=== PATIENT | male | born 1935 | race American Indian/Alaskan Native ===

== ENCOUNTER → 2017-01-23 | Outpatient (CLI) | payer OTHER, BC | LOC: CIMAGING 11:28 | PROVIDERS: ATTEND Internal Medicine | DX: M54.2 Cervicalgia (principal); M50.30 Other cervical disc degeneration, unspecified cervical region | CPT/HCPCS: 72040-PO ==

== ENCOUNTER → 2017-01-28 | Outpatient (CLI) | payer OTHER, BC ==
[~2017-01-28] MED LIST: IOPAMIDOL (ISOVUE-300) 100 ML BTL ONE
== END ==
LOC: CIMAGING 11:25
PROVIDERS: ATTEND Internal Medicine
DX: G31.9 Degenerative disease of nervous system, unspecified (principal); I67.82 Cerebral ischemia; M54.2 Cervicalgia; Z86.73 Personal history of transient ischemic attack (TIA), and cerebral infarction without residual deficits
CPT/HCPCS: 70470; Q9967

== ENCOUNTER → 2017-05-13 | Outpatient (CLI) | payer OTHER, BC | LOC: CIMAGING 12:27 | PROVIDERS: ATTEND Family Medicine | DX: J90 Pleural effusion, not elsewhere classified (principal); J06.9 Acute upper respiratory infection, unspecified; Z87.891 Personal history of nicotine dependence | CPT/HCPCS: 71020-PO ==

== ENCOUNTER → 2017-06-26 | Outpatient (CLI) | payer OTHER, BC | LOC: CIMAGING 09:47 | PROVIDERS: ATTEND Internal Medicine | DX: I73.9 Peripheral vascular disease, unspecified (principal); J90 Pleural effusion, not elsewhere classified; M48.50XA Collapsed vertebra, not elsewhere classified, site unspecified, initial encounter for fracture; Z95.0 Presence of cardiac pacemaker; Z95.1 Presence of aortocoronary bypass graft; M41.85 Other forms of scoliosis, thoracolumbar region | CPT/HCPCS: 71250-PO ==

== ENCOUNTER → 2018-05-18 | Outpatient (CLI) | payer OTHER, BC | LOC: CIMAGING 15:57 | PROVIDERS: ATTEND Internal Medicine | DX: R63.4 Abnormal weight loss (principal); R05 Cough; J90 Pleural effusion, not elsewhere classified; J98.11 Atelectasis; R91.8 Other nonspecific abnormal finding of lung field | CPT/HCPCS: 36415-PO; 71046-PO; 82607-90 ==

== ENCOUNTER → 2018-05-22 | Outpatient (CLI) | payer OTHER, BC | LOC: CIMAGING 12:59 | PROVIDERS: ATTEND Internal Medicine | DX: J90 Pleural effusion, not elsewhere classified (principal); Z95.1 Presence of aortocoronary bypass graft | CPT/HCPCS: 71260; Q9967 ==

== ENCOUNTER 2018-09-17 10:47 | Inpatient (IN) | payer OTHER, BC ==
--- NOTE | 2018-09-17 14:03 | EDPHY ---
HPI/HX/ROS/PE/MDM Narrative: CHIEF COMPLAINT: Dyspnea, low Hct 27.9 HISTORY OF PRESENT ILLNESS: The patient is an 82 y/o male with a history of CABG and gastric ulcer arriving with his at the recommendation of his PCP, Dr. Beth, for a low Hct and dyspnea. Several days ago he went to [facility] due to a several day history of exertional dyspnea and significant difficulty walking due to this. His Hgb/Hct at that time were 9/29, creatinine 1.9 and he was discharged home. He continued to have symptoms and went to see his PCP, Dr. Beth, yesterday for evaluation. He had labs run that showed a Hct of 27.3 and his doctor is concerned he is bleeding and referred him to the ED. He denies current black stools or emesis, but did have a black bowel movement two weeks ago. He does not use home O2 and says he does not generally have shortness of breath at baseline, but rather describes himself as getting fatigued easily. His disputes this and says he is short of breath frequently. He had upper back pain last week that was treated with Meloxicam, approximately 3 pills last week, but otherwise no regular doses of nonsteroidals. No fever, chills, chest pain, palpitations, vomiting, diarrhea, urinary complaints, headache, lightheadedness, dizziness, syncope, leg swelling. REVIEW OF SYSTEMS: Aside from elements discussed in the HPI, a comprehensive 10-point review of systems was reviewed and is negative. PAST MEDICAL HISTORY: Pacemaker, bypass x2, tricuspid valve regurgitation, mitral clip placement, gastric ulcer history SOCIAL HISTORY: Nonsmoker. at bedside. Occasional wine ( disputes this and says "quite a bit"). PCP: Dr. Beth VITAL SIGNS: Reviewed by me. Vital signs are stable. GENERAL: Well-developed, well-nourished, resting comfortably in no respiratory distress. Somewhat hard of hearing. HEENT: Atraumatic. Eyes: No icterus, no injection. Mouth: moist mucous membranes. No erythema or lesions. Neck: supple with no adenopathy. LUNGS: Clear to auscultation bilaterally, no wheezes, rhonchi or rales. CARDIAC: Regular rate and rhythm, no rubs or gallops. Diastolic murmur. Cyanotic nail beds. ABDOMEN: Soft, nontender, nondistended, bowel sounds normal. RECTAL: Small amount of brown/yellow mucus on the glove. BACK: No CVA tenderness. EXTREMITIES: No trauma. No edema. Range of motion is normal throughout. NEURO: Alert and oriented, grossly nonfocal. SKIN: Warm and dry, no rash. PSYCHIATRIC: Normal mentation, no agitation. Portions of this note were transcribed by a medical director of hospice. I personally performed a history, physical exam, medical decision making, and confirmed accuracy of information the transcribed note. ED Course: This is an 82 y/o male who presents at the recommendation of his PCP due to low Hct and dyspnea with exertion for at least several days. Exam is largely benign. He does have some nail bed cyanosis. Plan for IV, labs, occult stool, EKG. 500mL IV NS ordered. Patient's stool for occult blood test is negative. His hemoglobin and hematocrit are 8 and 26 currently. Bedside troponin is 0.05. Lab troponin 0.054. Creatinine is 1.3. EKG demonstrates a paced rhythm. No discordance noted. Patient's course was discussed with the hospitalist service, Dr. Lu. Patient will be admitted to the PCU. Echocardiogram will be obtained prior to the patient's admission. MDM: Differential diagnosis for the patient's dyspnea on exertion was considered including but not limited to pulmonary infectious processes, anemia, congestive failure, coronary artery disease, right-sided heart failure, pulmonary emboli, pulmonary edema, and cardiac causes. - Data Points Laboratory Results: Laboratory Results 09/17/18 14:20 09/17/18 14:20 09/17/18 09/17/18 09/17/18 14:46 14:34 14:20 WBC RBC Hgb Hct MCV MCH MCHC RDW Plt Count MPV Neut % (Auto) Lymph % (Auto) [place] % (Auto) Eos % (Auto) Baso % (Auto) Nucleat RBC Rel Count Absolute Neuts (auto) Absolute Lymphs (auto) Absolute Monos (auto) Absolute Eos (auto) Absolute Basos (auto) Absolute Nucleated RBC Immature Gran % Immature Gran # PT INR APTT Sodium Potassium Chloride Carbon Dioxide Anion Gap BUN Creatinine Estimated GFR Glucose Calcium Total Bilirubin Conjugated Bilirubin Unconjugated Bilirubin AST ALT Alkaline Phosphatase POC Troponin I 0.05 ng/mL ng/mL (0.00-0.08) Troponin I 0.054 ng/mL H ng/mL (0.000-0.034) Total Protein Albumin Lipase Stool Occult Bld Scrn NEGATIVE (NEGATIVE) 09/17/18 09/17/18 09/17/18 14:20 14:20 14:20 WBC 5.98 10^3/uL 10^3/uL (3.80-9.50) RBC 2.86 10^6/uL L 10^6/uL (4.40-6.38) Hgb 8.4 g/dL L g/dL (13.7-17.5) Hct 26.8 % L % (40.0-51.0) MCV 93.7 fL fL (81.5-99.8) MCH 29.4 pg pg (27.9-34.1) MCHC 31.3 g/dL L g/dL (32.4-36.7) RDW 14.6 % % (11.5-15.2) Plt Count 282 10^3/uL 10^3/uL (150-400) MPV 10.2 fL fL (8.7-11.7) Neut % (Auto) 68.8 % % (39.3-74.2) Lymph % (Auto) 17.4 % % (15.0-45.0) [place] % (Auto) 11.4 % % (4.5-13.0) Eos % (Auto) 1.5 % % (0.6-7.6) Baso % (Auto) 0.7 % % (0.3-1.7) Nucleat RBC Rel Count 0.0 % % (0.0-0.2) Absolute Neuts (auto) 4.12 10^3/uL 10^3/uL (1.70-6.50) Absolute Lymphs (auto) 1.04 10^3/uL 10^3/uL (1.00-3.00) Absolute Monos (auto) 0.68 10^3/uL 10^3/uL (0.30-0.80) Absolute Eos (auto) 0.09 10^3/uL 10^3/uL (0.03-0.40) Absolute Basos (auto) 0.04 10^3/uL 10^3/uL (0.02-0.10) Absolute Nucleated RBC 0.00 10^3/uL 10^3/uL (0-0.01) Immature Gran % 0.2 % % (0.0-1.1) Immature Gran # 0.01 10^3/uL 10^3/uL (0.00-0.10) PT 14.6 SEC SEC (12.0-15.0) INR 1.12 (0.83-1.16) APTT 35.4 SEC SEC (23.0-38.0) Sodium 136 mEq/L mEq/L (135-145) Potassium 4.8 mEq/L mEq/L (3.5-5.2) Chloride 108 mEq/L mEq/L (97-110) Carbon Dioxide 23 mEq/l mEq/l (22-31) Anion Gap 5 mEq/L L mEq/L (6-14) BUN 39 mg/dL H mg/dL (7-23) Creatinine 1.3 mg/dL mg/dL (0.7-1.3) Estimated GFR 53 Glucose 100 mg/dL mg/dL (70-100) Calcium 8.5 mg/dL mg/dL (8.5-10.4) Total Bilirubin 0.4 mg/dL mg/dL (0.1-1.4) Conjugated Bilirubin 0.4 mg/dL mg/dL (0.0-0.5) Unconjugated Bilirubin 0.0 mg/dL mg/dL (0.0-1.1) AST 23 IU/L IU/L (17-59) ALT 25 IU/L IU/L (21-72) Alkaline Phosphatase 102 IU/L IU/L (38-126) POC Troponin I Troponin I Total Protein 6.7 g/dL g/dL (6.3-8.2) Albumin 3.3 g/dL L g/dL (3.5-5.0) Lipase 40 IU/L IU/L (23-300) Stool Occult Bld Scrn Medications Given: Discontinued Medications Sodium Chloride (Ns) 500 mls @ 0 mls/hr IV EDNOW ONE; Wide Open PRN Reason: Protocol Stop: 09/17/18 14:14 Last Admin: 09/17/18 14:34 Dose: 500 mls Sodium Chloride (Ns) 500 mls @ 1,000 mls/hr IV EDNOW ONE PRN Reason: Protocol Stop: 09/17/18 15:14 Last Admin: 09/17/18 15:07 Dose: 500 mls Point of Care Test Results: Chemistry 09/17/18 14:34 POC Troponin I 0.05 ng/mL ng/mL (0.00-0.08) General Time Seen by Provider: 09/17/18 13:40 Initial Vital Signs: Initial Vital Signs Heart Rate 60 09/17/18 11:05 Respiratory Rate 16 09/17/18 11:05 Blood Pressure 105/50 L 09/17/18 11:05 O2 Delivery Mode Room Air Allergies/Adverse Reactions: No Known Allergies Allergy (Verified 09/17/18 15:29) Home Medications: Medication Instructions Recorded Atorvastatin Calcium 10 mg PO DAILY 08/23/15 Clobetasol 0.05% [Temovate Cream] 1 siva TP BID 08/23/15 Herbals/Supplements -Info Only 1 ea PO DAILY 08/23/15 Metoprolol Tartrate 12.5 mg PO BID 08/23/15 Multivitamins [Multivitamin (*)] 1 each PO DAILY 08/23/15 Potassium Chloride 20 meq PO DAILY 08/23/15 Aspirin EC [Aspirin EC 81 mg (*)] 81 mg PO DAILY 09/17/18 Cholecalciferol Vit D3 [Vitamin D3 1,000 units PO DAILY 09/17/18 (*)] Furosemide [Lasix 20 MG (*)] 10 mg PO TUTHSA 09/17/18 Furosemide [Lasix 20 MG (*)] 20 mg PO SUMOWEFR 09/17/18 Lisinopril [Zestril 5 mg (*)] 5 mg PO DAILY 09/17/18 Melatonin [Melatonin 5 mg] 5 mg PO HS 09/17/18 Meloxicam 7.5 mg PO DAILY PRN 09/17/18 Departure - Departure Disposition: [facility] Acute Clinical Impression: Elevated troponin Dyspnea Qualifiers: Dyspnea type: dyspnea on exertion Qualified Code(s): R06.09 - Other forms of dyspnea Anemia Qualifiers: Anemia type: unspecified type Qualified Code(s): D64.9 - Anemia, unspecified Tricuspid regurgitation Qualifiers: Cardiac valve disease etiology: etiology unspecified Qualified Code(s): I07.1 - Rheumatic tricuspid insufficiency Condition: Fair Report Scribed for: Dione Calle Report Scribed by: Cammie Rivas Date of Report: 09/17/18 Time of Report: 14:12
[2018-09-17] MEDS ORDERED: NS 500 ML IV ONE ×2 (14:13→14:45)
[2018-09-17 14:33] LABS: PLATELET COUNT 282 10^3/uL (150-400)
[2018-09-17 14:43] LABS: INR 1.12 (0.83-1.16); PROTIME(PATIENT) 14.6 SEC (12.0-15.0)
[2018-09-17] MEDS ORDERED: ALBUTEROL 3 ML DEYVIAL IH PRN (15:46)
[2018-09-17] MEDS ORDERED: ONDANSETRON 4 MG/2 ML VIAL IVP PRN (15:46)
[2018-09-17] MEDS ORDERED: ONDANSETRON DISINTEGRATING 4 MG TAB PO PRN (15:46)
[2018-09-17] MEDS ORDERED: ACETAMINOPHEN 325 MG TAB PO PRN (15:46)
[2018-09-17] MEDS ORDERED: oxyCODONE IR 5 MG TAB PO PRN (15:46)
[2018-09-17] MEDS ORDERED: PROMETHAZINE HCL 25 MG/ML INJ IVP PRN (15:46)
--- NOTE | 2018-09-17 17:08 | ECHO ---
[email or web address] [address] [address] Main: [phone] Fax: Transthoracic Echocardiogram Name: MARIE KOO MR#: [id number] Study Date: 09/17/2018 Study Time: 03:56 PM Date of : 1935 Age: 82 year(s) Height: 182.9 cm (72 in.) Weight: 60.78 kg (134 lb.) BSA: 1.8 m2 Gender: Male Examination: Echo Indication: Shortness of breath, elevated troponins, hx TR, HX CABG, HX mitral valve clip Image Quality: Adequate Contrast: Requested by: Dione Calle BP: 148 mmHg/75 mmHg Heart Rate: Rhythm: Indication: Shortness of breath, elevated troponins, hx TR, HX CABG, HX mitral valve clip Procedure Staff [place]: Jenna Miller [facility] Reading Physician: Lee Munoz MD Requesting Provider: Conclusions: Normal size left ventricle. Borderline concentric LV hypertrophy. EF is 57 %. Septal dyskinesis most likely due to pacemaker activity. Mild apical hypokinesis due to pacemaker or CAD. Diastolic dysfunction indeterminate due to mitral valve clip. Mildly to moderately dilated right ventricle. Moderately reduced RV function. There is a pacemaker lead noted in the right ventricle. The left atrium is severely dilated. The right atrium is severely dilated. Aortic sclerosis is present. Mild aortic valve regurgitation is present. No aortic valve stenosis is present. Severe tricuspid regurgitation is present. Right ventricular systolic pressure measures 77mmHg. No pericardial effusion. Comparison study from 06/14/2015 was done prior to his MitraClip procedure and demonstrated severe MR. Measurements: Chambers Valvular Assessment AV/MV Valvular Assessment TV/PV Normal Normal Normal Name Value Range Name Value Range Name Value Range Ao Winsome (MM): 3.6 cm (2.2 cm-3.7 AV Vmax: 1.36 m/s (1 m/s-1.7 TR Vmax: 4.09 mm/s ( - ) cm) m/s) TR PGmax: 67 mmHg ( - ) IVSd (2D): 1.0 cm (0.6 cm-1.1 AV maxP mmHg ( - ) syst. PAP: 77 mmHg ( - ) cm) AV meanP mmHg ( - ) PV Vmax: 0.91 m/s (0.6 m/s-0.9 LVDd (2D): 4.5 cm (4.2 cm-5.9 LVOT Vmax: 0.59 m/s (0.7 m/s-1.1 m/s) cm) m/s) PV PGmax: 3 mmHg ( - ) Patient: MARIE KOO Study Date: 09/17/2018 Page 1 of 3 03:56 PM LVDs (2D): 2.9 cm (2.1 cm-4 TIKI (Vmax): 1.5 cm2 ( - ) cm) TIKI (VTI): 1.7 cm ( - ) LVPWd (2D): 0.9 cm (0.6 cm-1 AR (PHT): 982 ms ( - ) cm) MV maxP mmHg ( - ) LVOTd 2.1 cm 2.1 cm mm MV meanP mmHg ( - ) LVEF (BP): 57 % (>=55 %) MV PHT: 0.108 s ( - ) RVDd(2D): 4.6 cm (1.9 cm-3.8 MVA (Vmax): 0.9 m/s ( - ) cmmm) MVA (PHT): 2.0 s ( - ) Continued Measurements: Chambers Valvular Assessment AV/MV Valvular Assessment TV/PV Name Value Name Value Name Value LADs: 3.3 cm MV VTI: 52.90 cm CVP (est.): 10 mmHg LADs Lon.0 cm AR Vmax: 2.39 cm/s LA Area: 31.4 cm2 LA Volume: 127 ml LA Volume Index: 70.6 ml/m2 TAPSE: 0.9 cm RA Area: 25.5 cm2 Additional Vessels Name Value Ao Ascendin.6 cm Findings: Left Ventricle: Normal size left ventricle. Borderline concentric LV hypertrophy. Normal global systolic LV function. EF is 57 %. Septal dyskinesis most likely due to pacemaker activity. Mild apical hypokinesis due to pacemaker or CAD. Diastolic dysfunction indeterminate due to mitral valve clip. Right Ventricle: Mildly to moderately dilated right ventricle. Moderately reduced RV function. There is a pacemaker lead noted in the right ventricle. Left Atrium: The left atrium is severely dilated. Right Atrium: The right atrium is severely dilated. Mitral Valve: The patient has had a MitraClip procedure. The mitral leaflets are thickend consistent with 1-2 mitral clips. Mild mitral regurgitation. Mean pressure across the MV is 7mmHg consistent with mild jatin stenosis. Aortic Valve: The aortic valve is tri-leaflet. Aortic sclerosis is present. Mild aortic valve regurgitation is present. No aortic valve stenosis is present. Tricuspid Valve: The tricuspid valve leaflets do not seem to coapt due to RV dilatation. Severe tricuspid regurgitation is present. Right ventricular systolic pressure measures 77mmHg. The pulmonary artery pressure is severely increased. Pulmonic Valve: The pulmonic valve is normal in appearance. Mild pulmonic valve regurgitation is noted. Aorta: Normal size aortic root measuring 3.6 cm. Normal size ascending aorta measuring 2.6 cm. IVC: The IVC is mildly dilated. There is greater marley 50% respiratory excursion. Pericardium: No pericardial effusion. There is a pleural effusion. Patient: MARIE KOO Study Date: 09/17/2018 Page 2 of 3 03:56 PM (No Signature Object) Patient: MARIE KOO Study Date: 09/17/2018 Page 3 of 3 03:56 PM [id number]
--- NOTE | 2018-09-17 17:30 | PDGENHP ---
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 Patient notes that he has been experiencing these sxs of fatigue and sob primarily with exertion, but at rest as well. He has been seen by his PCP for this as well as at [facility] ER on 09/15 and was noted at both of these evaluations to have normal o2 sats and clear lungs but lower blood cell counts and worsening creatinine from his baseline. He has been set up to be evaluated by GI but has not seen them yet. He has had serial stool studies including one today that have been negative for blood and has had an SPEP sent by his PCP which is still pending. His PCP became concerned when he noted that patients hgb on 09/15 was 9.0 and on 09/16 was 8.5. Today in the ER it is found to be 8.4. Patient notes that several weeks ago he had an episode of dark/tarry stools which resolved and has not returned. He states he has been eating and drinking well, although his notes he does not drink much fluid. He does not believe he has had any recent change in his medications but he does not seem to know what medications he is on either. He denies chest pain, palpitations, pain or swelling in his legs, fever or chills. History Information - Allergies/Home Medication List Allergies/Adverse Reactions: No Known Allergies Allergy (Verified 09/17/18 15:29) Home Medications: Atorvastatin Calcium 10 mg PO HS 08/23/15 [Last Taken Unknown] Herbals/Supplements -Info Only 1 ea PO DAILY 08/23/15 [Last Taken Unknown] Multivitamins [Multivitamin (*)] 1 each PO DAILY 08/23/15 [Last Taken Unknown] Aspirin EC [Aspirin EC 81 mg (*)] 81 mg PO HS 09/17/18 [Last Taken Unknown] Cholecalciferol Vit D3 [Vitamin D3 (*)] 1,000 units PO DAILY 09/17/18 [Last Taken Unknown] Furosemide [Lasix 40 MG (*)] 20 mg PO TUTHSA 09/17/18 [Last Taken Unknown] Furosemide [Lasix 40 MG (*)] 40 mg PO SUMOWEFR 09/17/18 [Last Taken Unknown] Lisinopril [Zestril 5 mg (*)] 5 mg PO HS 09/17/18 [Last Taken Unknown] Melatonin [Melatonin 5 mg] 5 mg PO HS 09/17/18 [Last Taken Unknown] Metoprolol Succinate Xr [Toprol Xl 25 mg (*)] 12.5 mg PO HS 09/17/18 [Last Taken Unknown] I have personally reviewed and updated: family history, medical history, social history, surgical history - Past Medical History atrial fibrillation (flutter), coronary artery disease, CHF (diastolic and prior EF of 40-45%), hypertension, hyperlipidemia Additional medical history: moderate pulm htn. CKD with prior baseline of 1.3. VHD with prior severe MR/severe TR and s/p MV clip. chronic anemia--prior to these visits hgb of 11. chronic left pleural effusion - Surgical History Reports: coronary bypass surgery, pacemaker/AICD - Family History Positive for: non-pertinent - Social History Smoking Status: Former smoker Alcohol Use: Occasionally Drug Use: None Additional social history: , lives with his Review of Systems Review of Systems: ROS: 10pt was reviewed & negative except for what was stated in HPI & below Physical Exam Physical Exam: Temp Pulse Resp BP Pulse Ox 36.9 C 68 18 140/71 H 94 09/17/18 17:28 09/17/18 17:28 09/17/18 17:28 09/17/18 17:28 09/17/18 17:28 Constitutional: no apparent distress, appears nourished Eyes: PERRL, anicteric sclera Ears, Nose, Mouth, Throat: moist mucous membranes, hearing normal Cardiovascular: regular rate and rhythym, systolic murmur, No edema Respiratory: no respiratory distress, no rales or rhonchi, clear to auscultation Gastrointestinal: normoactive bowel sounds, soft, non-tender abdomen Genitourinary: no bladder tenderness Skin: warm, normal color Musculoskeletal: full muscle strength Neurologic: AAOx3 Psychiatric: interacting appropriately, not anxious, not encephalopathic Lab Data & Imaging Review 09/17/18 14:20 09/17/18 14:20 WBC 5.98 10^3/uL (3.80-9.50) 09/17/18 14:20 RBC 2.86 10^6/uL (4.40-6.38) L 09/17/18 14:20 Hgb 8.4 g/dL (13.7-17.5) L 09/17/18 14:20 Hct 26.8 % (40.0-51.0) L 09/17/18 14:20 MCV 93.7 fL (81.5-99.8) 09/17/18 14:20 MCH 29.4 pg (27.9-34.1) 09/17/18 14:20 MCHC 31.3 g/dL (32.4-36.7) L 09/17/18 14:20 RDW 14.6 % (11.5-15.2) 09/17/18 14:20 Plt Count 282 10^3/uL (150-400) 09/17/18 14:20 MPV 10.2 fL (8.7-11.7) 09/17/18 14:20 Neut % (Auto) 68.8 % (39.3-74.2) 09/17/18 14:20 Lymph % (Auto) 17.4 % (15.0-45.0) 09/17/18 14:20 [place] % (Auto) 11.4 % (4.5-13.0) 09/17/18 14:20 Eos % (Auto) 1.5 % (0.6-7.6) 09/17/18 14:20 Baso % (Auto) 0.7 % (0.3-1.7) 09/17/18 14:20 Nucleat RBC Rel Count 0.0 % (0.0-0.2) 09/17/18 14:20 Absolute Neuts (auto) 4.12 10^3/uL (1.70-6.50) 09/17/18 14:20 Absolute Lymphs (auto) 1.04 10^3/uL (1.00-3.00) 09/17/18 14:20 Absolute Monos (auto) 0.68 10^3/uL (0.30-0.80) 09/17/18 14:20 Absolute Eos (auto) 0.09 10^3/uL (0.03-0.40) 09/17/18 14:20 Absolute Basos (auto) 0.04 10^3/uL (0.02-0.10) 09/17/18 14:20 Absolute Nucleated RBC 0.00 10^3/uL (0-0.01) 09/17/18 14:20 Immature Gran % 0.2 % (0.0-1.1) 09/17/18 14:20 Immature Gran # 0.01 10^3/uL (0.00-0.10) 09/17/18 14:20 PT 14.6 SEC (12.0-15.0) 09/17/18 14:20 INR 1.12 (0.83-1.16) 09/17/18 14:20 APTT 35.4 SEC (23.0-38.0) 09/17/18 14:20 Sodium 136 mEq/L (135-145) 09/17/18 14:20 Potassium 4.8 mEq/L (3.5-5.2) 09/17/18 14:20 Chloride 108 mEq/L (97-110) 09/17/18 14:20 Carbon Dioxide 23 mEq/l (22-31) 09/17/18 14:20 Anion Gap 5 mEq/L (6-14) L 09/17/18 14:20 BUN 39 mg/dL (7-23) H 09/17/18 14:20 Creatinine 1.3 mg/dL (0.7-1.3) 09/17/18 14:20 Estimated GFR 53 09/17/18 14:20 Glucose 100 mg/dL (70-100) 09/17/18 14:20 Calcium 8.5 mg/dL (8.5-10.4) 09/17/18 14:20 Total Bilirubin 0.4 mg/dL (0.1-1.4) 09/17/18 14:20 Conjugated Bilirubin 0.4 mg/dL (0.0-0.5) 09/17/18 14:20 Unconjugated Bilirubin 0.0 mg/dL (0.0-1.1) 09/17/18 14:20 AST 23 IU/L (17-59) 09/17/18 14:20 ALT 25 IU/L (21-72) 09/17/18 14:20 Alkaline Phosphatase 102 IU/L (38-126) 09/17/18 14:20 POC Troponin I 0.05 ng/mL (0.00-0.08) 09/17/18 14:34 Troponin I 0.054 ng/mL (0.000-0.034) H 09/17/18 14:20 Total Protein 6.7 g/dL (6.3-8.2) 09/17/18 14:20 Albumin 3.3 g/dL (3.5-5.0) L 09/17/18 14:20 Lipase 40 IU/L (23-300) 09/17/18 14:20 Stool Occult Bld Scrn NEGATIVE (NEGATIVE) 09/17/18 14:46 Visualized and Interpreted Chest x-ray results: Yes Chest X-Ray results: effusion (left loculated pleural effusion, chronic) Visualized and Interpreted imaging results: Yes Interpretation: echo: mild mr/ar and severe TR, EF of 57%, RVSP of 77mmHg Visualized and Interpreted EKG results: Yes EKG additional interpertation: V paced rhythm Assessment & Plan Assessment: Dyspnea (Acute) Elevated troponin (Acute) Anemia (Acute) Tricuspid regurgitation (Acute) 82 yo M with hx of CAD s/p CABG, VHD with severe TR and prior severe MR now s/p MR clip presenting with worsening anemia and sob # acute on chronic anemia: with slow downtrend since last May, negative hemoccult x 3, etiology unclear but nothing to suggest acute or ongoing bleeding. Does describe an episode of dark stools 2 weeks ago and with chronic anemia possible that a resolved GI bleed or slow bleed is underlying etiology, regardless unless e/o active bleeding develops do not feel that an urgent IP endoscopy is necessary. Will get serial h/h. Iron studies performed show likely mixed picture with possible component of iron deficiency in addition to anemia of chronic disease. Bili normal, no abnormal cells to suggest hemolysis. # sob: without clear etiology, o2 sats in high 90s, cxr normal, echo appears overall improved other than worsening pulmonary htn as next. Trop mildly elevated on arrival, will trend, monitor on tele as below # elevated trop: without chest pain but c/o sob and exertional dyspnea/fatigue, echo showing improved ef and no clear e/o wall motion abnormality, will ask cardiology to consult in am # severe pulm htn: this has worsened since his prior echo and along with severe TR possible underlying etiology for his sxs, he does not appear volume overloaded on exam, no hypoxia, cardiology consult pending # CAD: with no c/o chest pain but elevated trop, non ischemic ecg, trending trops/monitor on tele # ckd: at baseline, did have episode of trent on 09/15 on evaluation of ER report from [facility] # VHD: MR prior to MV clip was severe now mild, TR remains severe, as above # chronic left pleural effusion: noted to be loculated, has been present for some time and commented on by prior MDs as well, unlikely to be etiology for his sob # a flutter: now with PPM and V paced rhythm on ecg # observation status Patient new to my care. Old records reviewed and summarized as above. Care plan reviewed with ER doctor as above. Further hx obtained from patients present at bedside.
[2018-09-17] MEDS: LISINOPRIL 5 MG TAB PO SCH (19:42)
[2018-09-17] MEDS: ATORVASTATIN CALCIUM 10 MG TAB PO SCH (19:42)
[2018-09-17] MEDS: METOPROLOL SUCCINATE XR 25 MG TAB PO SCH (19:44)
[2018-09-17] MEDS: MELATONIN 3 MG TAB PO SCH (19:45)
[2018-09-18 05:02] LABS: PLATELET COUNT 219 10^3/uL (150-400)
[2018-09-18] MEDS ORDERED: ATORVASTATIN CALCIUM 10 MG TAB PO SCH (09:00)
[2018-09-18] MEDS: CHOLECALCIFEROL VIT D3 1,000 UNITS TAB PO SCH (10:42)
[2018-09-18] MEDS: MULTIVITAMINS 1 EACH TAB PO SCH (10:42)
--- NOTE | 2018-09-18 13:38 | CPEKG ---
Test Reason : OPEN Blood Pressure : / mmHG Vent. Rate : 060 BPM Atrial Rate : 091 BPM P-R Int : 186 ms QRS Dur : 158 ms QT Int : 506 ms P-R-T Axes : 000 270 095 degrees QTc Int : 506 ms Ventricular-paced rhythm Confirmed by Dione Calle ([id number]) on 09/18/2018 1:37:55 PM Referred By: Dione Calle Confirmed By:Dione Calle
[2018-09-18] MEDS ORDERED: PNEUMOC 13-VAL CONJ-DIP CRM/PF 0.5 ML SYR (PREVNAR 13) IM ONE ×2 (14:00→16:30)
[2018-09-18] MEDS ORDERED: LIDOCAINE 1% 300 MG/30 ML SDV ONE (14:19)
--- NOTE | 2018-09-18 15:06 | GCON ---
[f rep st] CONSULTATION CARDIOLOGY CONSULTATION DATE OF CONSULTATION: 09/18/2018 REQUESTING PHYSICIAN: Dr. Kyle REASON FOR CONSULTATION: Progressive dyspnea on exertion in a patient with extensive prior cardiac h istory. HISTORY: The patient is an 82-year-old male who is familiar to me from past hospitalizations. I per formed two prior cardiac catheterizations on him. He has a history of CAD with prior CABG and subseq uent PCI procedures. He also has a history of valvular heart disease, status post MitraClip procedur e in 2015. He was seen in the emergency room at the [facility] two d ays ago. He was noted to be anemic with a hemoglobin of 9.0. His BNP was somewhat elevated at 1960. However, he was felt to be stable from a cardiac standpoint and volume compensated with respect to CHF. The patient followed up with his PCP the next day, and his hemoglobin was slightly lower at 8.5 . Because of ongoing issues with dyspnea on exertion, he was encouraged to come to the emergency logan at [facility] and be considered for admission for treatment and workup of his anemia. Duri ng the time that the patient was developing progressive dyspnea, he did not experience any symptoms s uggestive of angina and did not demonstrate any signs of increasing fluid retention. PAST CARDIAC HISTORY: He has an extensive cardiac history. In 2013, I performed a cardiac catheteri zation which demonstrated multivessel CAD. He had a 2-vessel CABG performed at the [facility]. His bypass grafts consist of BISHOP to LAD and saphenous vein graft to an obtuse jeff nal branch. Because of a history of atrial fibrillation, he underwent an intraoperative pulmonary ve in isolation and maze procedure. He subsequently has developed chronic atrial flutter. He has decli servando systemic anticoagulation. Once again, I performed a cardiac catheterization in 2015. At that ti me, he demonstrated a significant stenosis in the LAD distal to the insertion of the BISHOP graft. At that time he was also shown to have yzonlgka-cy-yyvrvk mitral regurgitation. An September of 2015, he underwent PCI of the LAD lesion as well as PCI of the RCA. In November of 2015, he underwent a MitraCl ip procedure. Prior to his PCI procedures and MitraClip, he had a cardiomyopathy with an ejection fr action of approximately 45%. He has had a chronic left-sided pleural effusion that dates back to his bypass surgery I believe. He also has severe tricuspid regurgitation. He continues to be followed by the [facility] Cardiology Department. They have discussed potentially performing off- label use of a MitraClip to treat his tricuspid regurgitation. Finally, he has a history of sick sin us syndrome and underwent dual-chamber pacemaker implantation in May of 2014. PAST MEDICAL HISTORY: In addition to his cardiac history, he has had a central retinal vein occlusio n. He has a history of peptic ulcer disease. MEDICATIONS: His relevant cardiac medications consist of aspirin 325 mg daily, atorvastatin 10 mg da wes, furosemide 20 mg daily, lisinopril 5 mg daily, and metoprolol tartrate 12.5 mg twice daily. ALLERGIES: No known drug allergies. FAMILY HISTORY: Noncontributory. SOCIAL HISTORY: He is . He is a nonsmoker and does not consume significant amounts of alcoho l. REVIEW OF SYSTEMS: Notable for progressive dyspnea with exertion and generalized osteoarthritis, marina nt discomfort. Otherwise, a 10-point review was negative. PHYSICAL EXAMINATION: VITAL SIGNS: Heart rate 60 with a ventricular paced rhythm on the monitor. B lood pressure 105/52. GENERAL: This is a thin elderly male in no acute distress. He is currently r eceiving a transfusion of packed red blood cells. HEAD AND NECK: No scleral icterus. Mucous membra good moist. Carotid pulses 2+ without bruits. There is no JVD. CHEST: Decreased breath sounds at t he left base. No wheezes or rales. CARDIAC: Regular rate and rhythm with normal S1 and S2. No mur mur or gallop. ABDOMEN: Soft, nontender, nondistended with normal bowel sounds. EXTREMITIES: 2+ p ulses and no peripheral edema. ECG: His ECG demonstrates underlying atrial flutter with ventricular pacing. Chest x-ray: Chest x-ray shows slightly enlarged cardiac silhouette. There is a loculated left basi lar pleural effusion. There is no evidence for pulmonary vascular congestion or pulmonary edema. LABORATORY STUDIES: His CBC demonstrates a white blood cell count of 4.55 with hemoglobin and hemato crit of 6.8 and 21.9. Platelet count is 219,000. Sodium is 137 with potassium 4.9, BUN 32, and crea tinine 1.1. IMPRESSION: This is an 82-year-old male with a complex cardiac history as outlined above. An echoca rdiogram performed yesterday demonstrated an ejection fraction of 57%. His mitral clip procedure has held up well, and he has only mild mitral regurgitation. He has severe tricuspid regurgitation whic h has been chronic. At this point, I think his cardiac status is largely unchanged compared to recor ds from the [facility], which are available in [place]. I think his progressiv e dyspnea on exertion is likely secondary to his anemia with a possible contribution from his left pl eural effusion. RECOMMENDATIONS: The patient is now admitted and will undergo a workup for the source of his anemia. He should continue his usual cardiac medications. No additional cardiac testing is indicated at th is time. We will sign off. Please call if there are any other questions or issues. /[id number]/MODL
--- NOTE | 2018-09-18 16:05 | HOSPPROG ---
Hospitalist Progress Note Assessment/Plan: #Acute on chronic anemia: 1 dark stool 2 weeks ago, currently normal. Had 3 negative FOBT recently -Will transfuse 1 unit today -needs endoscopy, but can be done outpatient -can dose IV iron #Dyspnea: multifactorial with anemia, chronic effusion, TR. Not requiring oxygen #CAD: h/o 2V-CABG with subsequent PCI to LAD/RCA in 2016. Statin, hold ASA with anemia #Atrial fibrillation: BB, prior MAZE procedure #Chronic left pleural effusion: since CT surgery. Reviewed imaging with Dr. Wiggins. 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 Thoracentesis today #VHD: h/o MR: s/p MitralClip. Mild MR on echo.Severe TR #SSS: pacemaker #Severe pulm HTN: caution with volume status #Diet: cardiac #DVT ppx: Lovenox Inpatient admission for transfusion, cards eval, thoracentesis Subjective: still SOB, no chest pain Objective: Vital Signs Temp Pulse Resp BP Pulse Ox 36.7 C 64 20 121/76 H 95 09/18/18 14:55 09/18/18 14:55 09/18/18 14:55 09/18/18 14:55 09/18/18 14:55 Laboratory Results 09/18/18 14:30 09/18/18 04:06 09/17/18 09/18/18 09/19/18 05:59 05:59 05:59 Intake Total 1300 325 Balance 1300 325 PT 14.6 SEC (12.0-15.0) 09/17/18 14:20 INR 1.12 (0.83-1.16) 09/17/18 14:20 - Time Spent With Patient Time Spent with Patient: greater than 35 minutes Time Spent with Patient: Greater than 35 minutes spent on this patients care, greater than 50% of time spent counseling, educating, and coordinating care regarding the above mentioned plan. - Physical Exam Constitutional: no apparent distress Eyes: PERRL Ears, Nose, Mouth, Throat: moist mucous membranes Cardiovascular: regular rate and rhythym, No edema Respiratory: other (decreased BS from mid-lung to base) Gastrointestinal: normoactive bowel sounds Genitourinary: no bladder fullness Skin: warm Musculoskeletal: full muscle strength Neurologic: AAOx3, CN II-XII Intact Psychiatric: interacting appropriately ICD10 Worksheet Patient Problems: Problems Problem Status Onset Dyspnea Acute Elevated troponin Acute Anemia Acute Tricuspid regurgitation Acute
--- NOTE | 2018-09-18 16:46 | ASMTCMCOM ---
CM Note CM Note Notes: 09/18/2018 Case Management Note Discussed pt during rounds this morning. Pt admitted for SOB and anemia. Blood transfusion planned. Met w/ and pt to discuss d/c needs. Erika can be reaced at [phone]. [facility]. Pt agreed referral would be a good idea. Faxed to [facility] health. Anticipating need for home health RN at discharge. Case Management d/c poc: to be determined. Case Management to follow. Date Signed: 09/18/2018 04:46 PM Electronically Signed By:Holly Dash RN
[2018-09-18] MEDS: HYDROCODONE/APAP 5/325 TAB PO PRN ×2 (16:48→20:51)
[2018-09-18] MEDS: ATORVASTATIN CALCIUM 10 MG TAB PO SCH (20:46)
[2018-09-18] MEDS: MELATONIN 3 MG TAB PO SCH (20:46)
[2018-09-18] MEDS: METOPROLOL SUCCINATE XR 25 MG TAB PO SCH (20:47)
[2018-09-18] MEDS: LISINOPRIL 5 MG TAB PO SCH (20:48)
--- NOTE | 2018-09-18 23:18 | PDMN ---
Medical Necessity Medical necessity: Pt meets IP criteria as of 09/18/2018 per and MCG M-35 ( Anemia); los > 2 mn for ongoing tx and management of anemia with dyspnea that has continued despite observation care in the setting of CAD, Afib, VHD, severe pulmonary HTN, and chronic pleural effusion.
[2018-09-19] MEDS: HYDROCODONE/APAP 5/325 TAB PO PRN ×3 (06:11→19:47)
[2018-09-19] MEDS ORDERED: FUROSEMIDE 20 MG TAB PO SCH (08:00)
[2018-09-19] MEDS: MULTIVITAMINS 1 EACH TAB PO SCH (09:23)
[2018-09-19] MEDS: CHOLECALCIFEROL VIT D3 1,000 UNITS TAB PO SCH (09:23)
[2018-09-19] MEDS: SODIUM FERRIC GLUCONAT/SUCROSE 125 MG in NS 100 ML IV SCH (12:53)
--- NOTE | 2018-09-19 14:54 | HOSPPROG ---
Hospitalist Progress Note Assessment/Plan: #Acute on chronic anemia: 1 dark stool 2 weeks ago, currently normal. Had 3 negative FOBT recently -s/p 1 unit RBC. IV iron while here -needs endoscopy, but can be done outpatient #Dyspnea: multifactorial with anemia, chronic effusion #Soft BP: hold ACEI and Lasix #CAD: h/o 2V-CABG with subsequent PCI to LAD/RCA in 2016. Statin, hold ASA with anemia #Atrial fibrillation: BB, prior MAZE procedure #Chronic left pleural effusion: since CT surgery. Reviewed imaging with Dr. Wiggins. Suspect paralyzed diaphragm -gram stain negative. Cytology pending #VHD: h/o MR: s/p MitralClip. Mild MR on echo.Severe TR #acute hypoxic resp failure: 80%RA with exertion. Due to anemia, pleural effusion. -oxygen at DC #SSS: pacemaker #Severe pulm HTN: caution with volume status #Diet: cardiac #DVT ppx: Lovenox Inpatient admission for transfusion, cards eval, thoracentesis Subjective: SOB with walking Objective: Vital Signs Temp Pulse Resp BP Pulse Ox 36.4 C 60 18 112/52 L 94 09/19/18 11:01 09/19/18 11:01 09/19/18 11:01 09/19/18 11:01 09/19/18 11:01 Microbiology 09/18/18 16:10 Gram Stain - Final Pleural Fluid - Aspirate Laboratory Results 09/19/18 07:30 09/19/18 07:30 09/18/18 09/19/18 09/20/18 05:59 05:59 05:59 Intake Total 676 Balance 676 PT 14.6 SEC (12.0-15.0) 09/17/18 14:20 INR 1.12 (0.83-1.16) 09/17/18 14:20 - Time Spent With Patient Time Spent with Patient: greater than 35 minutes Time Spent with Patient: Greater than 35 minutes spent on this patients care, greater than 50% of time spent counseling, educating, and coordinating care regarding the above mentioned plan. - Physical Exam Constitutional: no apparent distress Eyes: PERRL Ears, Nose, Mouth, Throat: moist mucous membranes Cardiovascular: regular rate and rhythym, No edema Respiratory: other (decreased BS mid left-lung to base) Gastrointestinal: normoactive bowel sounds Genitourinary: no bladder fullness Musculoskeletal: full muscle strength Neurologic: AAOx3, CN II-XII Intact Psychiatric: interacting appropriately ICD10 Worksheet Patient Problems: Problems Problem Status Onset Anemia Acute Dyspnea Acute Elevated troponin Acute Tricuspid regurgitation Acute
[2018-09-19] MEDS: ATORVASTATIN CALCIUM 10 MG TAB PO SCH (19:48)
[2018-09-19] MEDS: MELATONIN 3 MG TAB PO SCH (19:48)
[2018-09-19] MEDS: METOPROLOL SUCCINATE XR 25 MG TAB PO SCH (19:56)
[2018-09-20] MEDS ORDERED: NS 1,000 ML IV SCH (07:30)
[2018-09-20] MEDS: SODIUM FERRIC GLUCONAT/SUCROSE 125 MG in NS 100 ML IV SCH (08:36)
[2018-09-20] MEDS: MULTIVITAMINS 1 EACH TAB PO SCH (08:37)
[2018-09-20] MEDS: CHOLECALCIFEROL VIT D3 1,000 UNITS TAB PO SCH (08:37)
[2018-09-20] MEDS: HYDROCODONE/APAP 5/325 TAB PO PRN (08:37)
--- NOTE | 2018-09-20 08:52 | PDHOMEO2F ---
Home Oxygen Face to Face Home Orders: I certify that a physician or a nurse practitioner or physician's logging assistant has had a bzyo-lh-syzz encounter with this patient on the date of this order due to the diagnosis listed, which relates to the primary reason the patient requires home oxygen. Alternative treatments have been tried, or considered, and deemed ineffective. It is anticipated that supplemental oxygen will result in improvement with treatment. Home oxygen qualifying diagnosis: Chronic left pleural effusion Home oxygen secondary diagnosis: systolic/diastolic HF SpO2 on room air (%): 80 Frequency of home oxygen needed: continuous Home oxygen liters per minute: 2 Home oxygen delivery device: nasal cannula Concentrator: Yes E-tanks for mobility and back up: Yes If ordering portable O2, is the patient mobile in the home?: Yes I certify that, based on these findings, the home oxygen is medically necessary for this patient for the following length of time. Length of time home oxygen needed: 99 years
[2018-09-20] MEDS ORDERED: FUROSEMIDE 40 MG TAB PO SCH (09:00)
[2018-09-20 11:33] VITALS: BP 117/51
--- NOTE | 2018-09-20 11:48 | PDIAF ---
- Diagnosis Diagnosis: anemia Code Status: Full Code - Medication Management Discharge Medications: electronically signed and located in the Home Medication List. - Orders Services needed: Home Care, Registered Nurse Home Care Face to Face: I certify that this patient was under my care and that I had the required hfoj-yj-[id number] encounter meeting the encounter requirements on the discharge day. My findings support the fact that the patient is homebound as defined in Home Care Face to Face Continued: CMS Chapter 7 Medicare Benefits Manual 30.1.1 , The condition of the patient is such that there exists a normal inability to leave home and consequently, leaving home would require a considerable and taxing effort. Diet Recommendation: cardiac -low fat low salt Diet Texture: Regular Texture Diet Additional Instructions: LABS pending 1. Cytology from pleural fluid 2. MARIELA Make appointment with GI for endoscopy/colonoscopy to evaluate for bleeding Hold Lisinopril until you see your Electric Motor Rebuilder, because your blood pressure has been low here. Get a blood pressure cuff and keep of log of readings. Repeat CBC this week. - Labs/Radiology CBC w/diff Date: 09/21/18 - Follow Up Care Current Providers and Referrals: Manjit Jackson MD [Primary Care Provider] - As per Instructions
--- NOTE | 2018-09-20 12:32 | ASDISCHSUM ---
Discharge Information Plan Status:Home with Home Health Medically Cleared to Leave: Discharge Date: D/C Disposition:Home Health Service [facility] D/C Disposition:Home, Routine, Self-Care Projected Discharge Date:09/20/2018 11:00 AM Transportation at D/C: Discharge Delay Reason: Follow-Up Date:09/20/2018 11:00 AM Discharge Slot: Final Diagnosis: Placement Information Referral Type:*Home Health Care Services Referral ID:[id number] Provider Name:[facility]) Address 1:[address] [place] [address] Address 2: City:[place] Selection Factors: State:[place] Patient Contact Information Contact Name:MAURI Relationship: Address:[address] City:[facility] Phone: State/Zip Code:[place] [address] Email: Financial Information Financial Class:Medicare Primary Plan Desc:MEDICARE OUTPATIENT Primary Plan Number:[id number] Secondary Plan Desc:[facility] Secondary Plan Number:[id number] Assessment Information [facility] CM Progress Note CM Note CM Note Notes: 09/18/2018 Case Management Note Discussed pt during rounds this morning. Pt admitted for SOB and anemia. Blood transfusion planned. Met w/ and pt to discuss d/c needs. Erika can be reaced at [phone]. Erika has used [facility] in the past. Pt agreed referral would be a good idea. Faxed to [facility] home health. Anticipating need for home health RN at discharge. Case Management d/c poc: to be determined. Case Management to follow. Date Signed: 09/18/2018 04:46 PM Electronically Signed By:Holly Dash RN Case Management Discharge Plan Note Case Management Discharge Discharge Order Complete? Answers: Yes Patient to Obtain Answers: via Family Medications Transportation Arranged Answers: Family/Friends Faxed Final Orders Answers: Yes Agency/Facility Transfer Answers: Yes Report Printed & Faxed to Receiving Agency Discharge Comments Notes: Family requested Homecare RN. CM submit order with [facility]. Family to transport. Pt is also going home with Home O2. Date Signed: 09/20/2018 12:30 PM Electronically Signed By:TAMIKA Abraham Intervention Information
--- NOTE | 2018-09-20 16:41 | GDS ---
[f rep st] DISCHARGE SUMMARY DISCHARGE DIAGNOSES: 1. Acute on chronic anemia. 2. Dyspnea. 3. Mild hypertension. 4. Coronary artery disease, history of 2-vessel coronary artery bypass graft. 5. Atrial fibrillation. 6. Chronic left pleural effusion. 7. Valvular heart disease. 8. Acute hypoxic respiratory failure. 9. Sick sinus syndrome, has a pacemaker. 10. Severe pulmonary hypertension. 11. Systolic/diastolic heart failure. CONSULTATIONS: Cardiology. PROCEDURES: Echocardiogram 09/17/2018: Ejection fraction 57%. Septal dyskinesis due to pacemaker a ctivity. Diastolic dysfunction indeterminate due to mitral valve clip. Severe tricuspid regurgitati on, right ventricular systolic pressure 77 mmHg. HISTORY OF PRESENT ILLNESS: An 82-year-old male with CAD, mitral regurgitation status post mitral cl ip, and severe TR, presents from his PCP for concerns of worsening anemia. He has been having increa sed fatigue and shortness of breath over the past month. He was seen by his PCP and, at [facility] ER on , was noted to have normal O2 sat and clear lungs. He had a referral to GI to have endoscopy, but had not seen them yet. He had a negative fecal occult blood stool. Two weeks ago, he had an episod e of dark tarry stools, which resolved and has not returned. No change in his medications. His PCP was concerned when his hemoglobin on 09/15 was 9 and dropped to 8.5 on 09/16. He came to the ER on and it was 8.4. HOSPITAL COURSE BY PROBLEM: 1. Acute on chronic anemia: Slowly trend down since May. He has negative Hemoccult x3. Did de scribe an episode of dark stools 2 weeks ago but nothing since then. He is to follow up with GI this week for outpatient endoscopy. Was transfused 1 unit here and H and H are stable at discharge. He has low iron sat. He was dosed IV iron x2 and will resume supplementation at home. Could consider o ther underlying malignancy with chronic pleural effusion. 2. Dyspnea: Multifactorial with acute on chronic anemia and chronic pleural effusion. He was not v olume overloaded. He underwent thoracentesis with 300 mL taken off. Labs not consistent with infect ion. Cytology is pending, which should be followed by his PCP. 3. Indeterminate troponin: Echo showed improved EF and no wall motion abnormality. Cardiology eval uated and no further intervention needed. He has his cardiology appointment this week. 4. CAD: History of CABG and subsequent PCI. No chest pain. Resume home medications. 5. CKD: Creatinine is at baseline. 6. Valvular heart disease: Severe MR prior to mitral valve clip, which shows improvement on this ec hocardiogram. He does have severe TR. Continue Lasix. 7. Chronic left pleural effusion: This is present since his cardiothoracic surgery. Suspect this i s contributing to some of his shortness of breath. Underwent thoracentesis. Cytology is pending. 8. Sick sinus syndrome: Has a pacemaker in place. 9. Mild hypotension: Advised him to hold lisinopril until seeing his gambling broker on Friday. 10. Acute hypoxic respiratory failure: Was dyspneic with exertion. Status post thoracentesis with improvement. He is now stable on room air, ambulating. DISPOSITION: Patient is stable for discharge home with his and home RN. FOLLOWUP: 1. Primary gambling broker. 2. His PCP. 3. GI for endoscopy. LABS PENDING: Cytology from pleural fluid, MARIELA. Needs repeat CBC. TIME SPENT ON DISCHARGE: Greater than 30 minutes counseling patient on followup plan. /[id number]/MODL
== END 2018-09-20 13:59 | disposition home or self-care (01) | DRG 811 ==
LOC: F2W 17:22 → OBSVTOIN 09-18 14:10
PROVIDERS: ADMIT Internal Medicine; ATTEND Internal Medicine
PROC: 0W9B3ZX Drainage of Left Pleural Cavity, Percutaneous Approach, Diagnostic (ICD-10-PCS; principal; 2018-09-18)
PROC: 30233N1 Transfusion of Nonautologous Red Blood Cells into Peripheral Vein, Percutaneous Approach (ICD-10-PCS; 2018-09-18)
DX: D53.9 Nutritional anemia, unspecified (principal); D64.89 Other specified anemias; J90 Pleural effusion, not elsewhere classified; J96.01 Acute respiratory failure with hypoxia; I25.10 Atherosclerotic heart disease of native coronary artery without angina pectoris; I13.0 Hypertensive heart and chronic kidney disease with heart failure and stage 1 through stage 4 chronic kidney disease, or unspecified chronic kidney disease; I50.40 Unspecified combined systolic (congestive) and diastolic (congestive) heart failure; N18.9 Chronic kidney disease, unspecified; I48.92 Unspecified atrial flutter; E78.5 Hyperlipidemia, unspecified; I07.1 Rheumatic tricuspid insufficiency; I49.5 Sick sinus syndrome; Z95.810 Presence of automatic (implantable) cardiac defibrillator; Z95.1 Presence of aortocoronary bypass graft; Z87.891 Personal history of nicotine dependence; Z87.19 Personal history of other diseases of the digestive system; Z23 Encounter for immunization
CPT/HCPCS: 36415-PO; 84484-ER; G0009; G0378; J2916; P9016

== ENCOUNTER → 2018-09-23 | Outpatient (CLI) | payer OTHER, BC | LOC: CIMAGING 12:35 | PROVIDERS: ATTEND Internal Medicine | DX: J90 Pleural effusion, not elsewhere classified (principal); D50.9 Iron deficiency anemia, unspecified | CPT/HCPCS: 71046-PO ==

== ENCOUNTER → 2018-09-28 | Outpatient (CLI) | payer OTHER, BC | LOC: CIMAGING 11:27 | PROVIDERS: ATTEND Internal Medicine | DX: J90 Pleural effusion, not elsewhere classified (principal); J98.4 Other disorders of lung; K76.89 Other specified diseases of liver; R18.8 Other ascites; K57.30 Diverticulosis of large intestine without perforation or abscess without bleeding; I70.0 Atherosclerosis of aorta | CPT/HCPCS: 74177; Q9967 ==

== ENCOUNTER 2018-11-04 14:17 | Day surgery (SDC) | payer OTHER, BC ==
[2018-11-04] MEDS ORDERED: LR 1,000 ML IV ONE (16:20)
--- NOTE | 2018-11-04 16:25 | PDANEPAE ---
ANE Past Medical History - Cardiovascular History Hx Hypertension: Yes Hx Arrhythmias: Yes Hx Chest Pain: No Hx Coronary Artery / Peripheral Vascular Disease: Yes Hx CHF / Valvular Disease: Yes Hx Palpitations: No Cardiovascular History Comment: wide open TR.Mi - Pulmonary History Hx COPD: No Hx Asthma/Reactive Airway Disease: No Hx Recent Upper Respiratory Infection: No Hx Oxygen in Use at Home: No Hx Sleep Apnea: No Sleep Apnea Screening Result - Last Documented: Positive - Neurologic History Hx Cerebrovascular Accident: No Hx Seizures: No Hx Dementia: No - Endocrine History Hx Diabetes: No Hypothyroid: No Hyperthyroid: No Obesity: no - Renal History Hx Renal Disorders: No - Liver History Hx Hepatic Disorders: Yes Hepatic History Comment: cirrhosis - Neurological & Psychiatric Hx Hx Neurological and Psychiatric Disorders: No - Cancer History Hx Cancer: No - Congenital Disorder History Hx Congenital Disorders: No - GI History Hx Gastrointestinal Disorders: No - Other Health History Other Health History: [place]. intermittent dysphagia. psoriasis. anemia. bruises easily - Chronic Pain History Chronic Pain: No - Surgical History Prior Surgeries: PPM Placement. CABG x 2 ANE Review of Systems Review of Systems: - Exercise capacity METS (RN): 3 METS - Pacemaker Pacemaker Type: Permanent Pacer/Defib Pacemaker Software Licensing Executive: [employer] Pacemaker Model: INGENIO Pacemaker Mode: DDDR Date Pacemaker Last Checked: REMOTE CHECK 10/05/18 ANE Patient History - Allergies Allergies/Adverse Reactions: No Known Allergies Allergy (Verified 11/03/18 15:29) - Home Medications Home Medications: Atorvastatin Calcium 08/23/15 [Last Taken Unknown] Herbals/Supplements -Info Only 08/23/15 [Last Taken Unknown] Multivitamins [Multivitamin (*)] 08/23/15 [Last Taken Unknown] Cholecalciferol Vit D3 [Vitamin D3 (*)] 09/17/18 [Last Taken Unknown] Furosemide [Lasix 40 MG (*)] 09/17/18 [Last Taken Unknown] Furosemide [Lasix 40 MG (*)] 09/17/18 [Last Taken Unknown] Melatonin [Melatonin 5 mg] 09/17/18 [Last Taken Unknown] Metoprolol Succinate Xr [Toprol Xl 25 mg (*)] 09/17/18 [Last Taken Unknown] Ferrous Sulfate [Ferrous Sulf 325 MG (*)] 11/03/18 [Last Taken Unknown] - NPO status NPO Since - Liquids (Date): 11/04/18 NPO Since - Liquids (Time): 06:00 NPO Since - Solids (Date): 11/03/18 NPO Since - Solids (Time): 09:00 - Smoking Hx Smoking Status: Former smoker - Family Anes Hx Family Hx Anesthesia Complications: none ANE Labs/Vital Signs - Vital Signs Blood Pressure: 163/84 Heart Rate: 62 Respiratory Rate: 23 O2 Sat (%): 98 Height: 182.88 cm Weight: 62.142 kg ANE Physical Exam - Airway Neck exam: decreased ROM Mallampati Score: Class 2 Mouth exam: poor dentition - Pulmonary Pulmonary: reduced air movement - Cardiovascular Cardiovascular: systolic murmur - ASA Status ASA Status: III ANE Anesthesia Plan Anesthesia Plan: GA with mask
--- NOTE | 2018-11-04 16:52 | PDHPUP ---
History & Physical Update H&P update statement: This history and physical update is based on an assessment of the patient which was completed after admission or registration (within 24 hours), but prior to the surgery/procedure. H and P from 10/13/2018 A+Ox3 decreased bs left base no rales s1s2 +Bs, soft nt H&P update: H&P reviewed & patient examined (examined today) H&P changes: anemia better post transfusion. SOB. CAD
[2018-11-04] MEDS ORDERED: LIDOCAINE 2% 2 ML INJ ONE (17:00)
[2018-11-04] MEDS ORDERED: PROPOFOL 200 MG/20 ML VIAL ONE ×2 (17:00→17:28)
--- NOTE | 2018-11-04 18:57 | GIREPORT ---
[facility] - Endoscopy Department Patient Name: Jaden Waller Procedure Date: 11/04/2018 4:52 PM Patient Type: Outpatient Attending MD/ ER Physician: Bhaskar Portillo MD Procedure: Upper GI endoscopy Indications: Suspected upper gastrointestinal bleeding in patient with unexplained i stephanie deficiency anemia Providers: Bhaskar Portillo MD Referring MD: Maninder Beth MD Medicines: Propofol per Anesthesia Complications: No immediate complications. Estimated blood loss: Minimal. Description of Procedure: After obtaining informed consent, the endoscope was passed under direct vision. Throughout the procedure, the patient's blood pressure, pulse, and oxygen saturations were monitored continuously. The Endoscope was intro duced through the mouth, and advanced to the afferent and efferent jejunal lo ops. The upper GI endoscopy was accomplished without difficulty. The patient tolerated the procedure well. Findings: The examined esophagus was normal. 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 The gastrojejunal anastomosis was characterized by healthy appearing mucosa . This was traversed. The efferent limb was examined. The afferent limb w as examined. Diffuse moderate inflammation with hemorrhage characterized by adherent blood, congestion (edema), erythema and friability was found in the gas tric body. Biopsies were taken with a cold forceps for histology. Estimated blood loss was minimal. The exam was otherwise without abnormality. Estimated Blood Loss: Estimated blood loss was minimal. Post Op Diagnosis: - Normal esophagus. - Patent Billroth II gastrojejunostomy was found, characterized by heal thy appearing mucosa. - Gastritis with hemorrhage. Biopsied. - The examination was otherwise normal. Recommendation: - Await pathology results. - My office will call with the pathology result with 5-7 days. If you h ave not heard from my office by 12-14, do not assume the pathology is costa l, please call [phone] to get the pathology results. Take 30-60 minutes before breakfast. - Use sucralfate tablets 1 gram PO BID. Must separate from other medica tions by 1-2 hours before and after - Perform a colonoscopy today. - Return to primary care physician as previously scheduled. - Thank you for allowing me to help in your patient's care. Do not hesi graff to call with any questions. Attending Participation: I personally performed the entire procedure. Lindsey Dobson M.D Bhaskar Portillo MD 11/04/2018 6:57:11 PM This report has been signed electronicallyMatthew MD Lindsey Number of Addenda: 0 Note Initiated On: 11/04/2018 4:52 PM [email or web address]
--- NOTE | 2018-11-04 18:59 | GIREPORT ---
[facility] - Endoscopy Department Patient Name: Jaden Waller Procedure Date: 11/04/2018 4:53 PM Patient Type: Outpatient Attending MD/ ER Physician: Bhaskar Portillo MD Procedure: Colonoscopy Indications: Iron deficiency anemia Providers: Bhaskar Portillo MD Referring MD: Maninder Beth MD Medicines: Propofol per Anesthesia = IV general with spont resps Complications: No immediate complications. Estimated blood loss: None. Description of Procedure: After obtaining informed consent, the scope was passed under direct vis ion. Throughout the procedure, the patient's blood pressure, pulse, and oxyg en saturations were monitored continuously. The Colonoscope with irrigatio n channel was introduced through the anus and advanced to the cecum, identified by the appendiceal orifice, ileocecal valve and palpation. T he colonoscopy was performed without difficulty. The patient tolerated the procedure well. The quality of the bowel preparation was good. Findings: The digital rectal exam was normal. Multiple small and large-mouthed diverticula were found in the sigmoid colon, descending colon, transverse colon and ascending colon. The exam was otherwise without abnormality. Estimated Blood Loss: Estimated blood loss: none. Post Op Diagnosis: - Diverticulosis in the sigmoid colon, in the descending colon, in the transverse colon and in the ascending colon. - The examination was otherwise normal. - No specimens collected. Recommendation: - High fiber diet indefinitely. - 30-35 grams of dietary fiber per day. Can use supplemental fiber. - A high fiber diet may decrease risk of complications from diverticulo sis. There is no need to avoid seeds or nuts. - No repeat colonoscopy due to age and the absence of colonic polyps. - See EGD for other recommendations - Patient has a contact number available for emergencies. The signs and symptoms of potential delayed complications were discussed with the pat ient. Return to normal activities tomorrow. Written discharge instructions we re provided to the patient. - Continue present medications. - Discharge patient to home (ambulatory). - Return to primary care physician as previously scheduled. - Thank you for allowing me to help in your patient's care. Do not hesi graff to call with any questions. Attending Participation: I personally performed the entire procedure. Lindsey Dobson M.D Bhaskar Portillo MD 11/04/2018 6:58:41 PM This report has been signed electronicallyMattdamian Portillo MD Number of Addenda: 0 Note Initiated On: 11/04/2018 4:53 PM Total Procedure Duration Time 0 hours 14 minutes 2 seconds [email or web address]
[2018-11-04 19:25] VITALS: BP 138/72
--- NOTE | 2018-11-05 07:07 | POSTANESTH ---
Post Anesthetic Evaluation Cardiovascular Status: Similar to Pre-Op Cond Respiratory Status: Similar to Pre-op Cond. Level of Consciousness/Mental Status: Can Participate in Eval Pain Control: Adequate, Prn Tx Ordered Nausea/Vomiting Control: Adequate, Prn Tx Ordered Complications Possibly Related to Anesthesia: None Noted
== END 2018-11-04 19:35 | disposition home or self-care (01) ==
LOC: FSGY 14:17
PROVIDERS: ATTEND Internal Medicine Gastroenterology
PROC: 0DJD8ZZ Inspection of Lower Intestinal Tract, Via Natural or Artificial Opening Endoscopic (ICD-10-PCS; principal; 2018-11-04 15:45)
DX: D50.9 Iron deficiency anemia, unspecified (principal); K57.30 Diverticulosis of large intestine without perforation or abscess without bleeding; I34.0 Nonrheumatic mitral (valve) insufficiency; I36.1 Nonrheumatic tricuspid (valve) insufficiency; I25.10 Atherosclerotic heart disease of native coronary artery without angina pectoris; I27.20 Pulmonary hypertension, unspecified; Z95.1 Presence of aortocoronary bypass graft; Z79.01 Long term (current) use of anticoagulants
CPT/HCPCS: J2704

== ENCOUNTER → 2019-02-08 | Outpatient (CLI) | payer OTHER, BC | LOC: CIMAGING 16:00 ==